=== PATIENT | male | born 1990 | race Two or more races ===

== ENCOUNTER 2017-12-07 12:09 | Emergency (ER) | payer OTHER ==
[~2017-12-07] VITALS: Ht 162.6 cm; Wt 49.9 kg
[2017-12-07] MEDS ORDERED: KETOROLAC TROMETHAMINE 60 MG/2 ML VIAL IM ONE (12:30)
[2017-12-07] MEDS ORDERED: HYDROCODONE/APAP 10MG-325MG TAB PO ONE (12:30)
[2017-12-07] MEDS ORDERED: CEFTRIAXONE SOD 250 MG VIAL IM ONE (14:45)
[2017-12-07] MEDS ORDERED: AZITHROMYCIN 250 MG TAB PO ONE (14:45)
--- NOTE | 2017-12-07 14:49 | Diagnostic Imaging Report ---
EXAMINATION: Scrotal ultrasound CLINICAL INDICATION: Left testicular pain. COMPARISON: None. TECHNIQUE: Grayscale and color Doppler evaluation of the scrotum was performed in transverse and longitudinal planes. FINDINGS: The right testicle measures 3.5 x 2.2 x 2.6 cm. There are no masses or calcifications.. The right epididymis measures 1 x 0.5 x 0.9 cm. Epididymal head cyst versus per hematocele measures 6 mm. There is no evidence of right hydrocele or varicocele. Normal arterial and venous flow is identified within the right testis. The left testicle measures 3.7 x 2.2 x 2.4 cm. There are no masses or calcifications.. The left epididymis measures 0.9 x 0.5 x 0.7 cm. Mildly complex epididymal head cyst or spermatocele measures 9 mm.. There is no evidence of left hydrocele or varicocele. Normal arterial and venous flow is identified within the left testis. The scrotum has a normal appearance, without focal lesions. Impression: Unremarkable sonographic appearance of the testes with normal arterial and venous flow. No evidence of testicular torsion. Bilateral epididymal head cysts versus spermatoceles, mildly complex on the left. Signed by: Dr. Holland Becker M.D. on 12/07/2017 2:44 PM
[2017-12-07 15:03] VITALS: BP 118/76
== END 2017-12-07 15:10 | disposition home or self-care (01) ==
LOC: FSED 12:09
DX: N50.812 Left testicular pain (principal); N45.1 Epididymitis
CPT/HCPCS: 76870; 81003; 99283; J1885